=== PATIENT | female | born 1945 | race Caucasian/White ===

== ENCOUNTER 2018-04-10 11:37 | Day surgery (SDC) | payer MEDICARE, OTHER ==
[~2018-04-10] VITALS: Ht 167.6 cm; Wt 73.6 kg
[2018-04-10] MEDS ORDERED: PLEASE ENTER HEIGHT AND WEIGHT MC SCH (12:00)
[2018-04-10] MEDS ORDERED: PLEASE ENTER ALLERGIES MC SCH (12:00)
[2018-04-10] MEDS ORDERED: SODIUM CHLORIDE 0.9% 1,000 ML IV ONE (12:00)
[2018-04-10 12:05] VITALS: BP 135/71
[2018-04-10] MEDS ORDERED: ZOLP-413 PO (12:20)
[2018-04-10] MEDS ORDERED: OMEP-110 PO (12:20)
[2018-04-10] MEDS ORDERED: LEVO75TA5 PO (12:20)
[2018-04-10] MEDS ORDERED: LEVO100T5 PO (12:20)
[2018-04-10] MEDS ORDERED: ASPI-496 PO (12:20)
[2018-04-10] MEDS ORDERED: OMEG1CAP25 PO (12:20)
[2018-04-10] MEDS ORDERED: ALEN70TA3 PO (12:20)
[2018-04-10] MEDS ORDERED: CALC-649 PO (12:20)
[2018-04-10] MEDS ORDERED: LISI5TAB7 PO (12:20)
[2018-04-10] MEDS ORDERED: ASTR1POW PO (12:26)
[2018-04-10] MEDS ORDERED: OXYB5TAB7 PO (12:26)
[2018-04-10] MEDS ORDERED: BIOT5CAP3 PO (12:26)
[2018-04-10] MEDS ORDERED: VITA100C8 PO (12:31)
[2018-04-10] MEDS ORDERED: PROPOFOL 10 MG/ML, 20ML ONE (13:10)
== END 2018-04-10 14:52 | disposition home or self-care (01) ==
LOC: CACL 11:37
PROVIDERS: ATTEND Internal Medicine Cardiovascular Disease
DX: I35.1 Nonrheumatic aortic (valve) insufficiency (principal); I48.91 Unspecified atrial fibrillation; I10 Essential (primary) hypertension; E03.9 Hypothyroidism, unspecified; Z79.82 Long term (current) use of aspirin; Z79.899 Other long term (current) drug therapy; Z88.8 Allergy status to other drugs, medicaments and biological substances; Z95.0 Presence of cardiac pacemaker; Z98.890 Other specified postprocedural states
CPT/HCPCS: 93312; 93321; 93325; J2704

== ENCOUNTER → 2018-06-29 | Outpatient (CLI) | payer MEDICARE, OTHER ==
[~2018-06-29] MED LIST: ALEN70TA3 PO; ASPI-496 PO; ASTR1POW PO; BIOT5CAP3 PO; CALC-649 PO; LEVO100T5 PO; LEVO75TA5 PO; LISI5TAB7 PO; OMEG1CAP25 PO; OMEP-110 PO; OXYB5TAB7 PO; VITA100C8 PO; ZOLP-413 PO
== END | disposition home or self-care (01) ==
LOC: CVU 10:21
PROVIDERS: ATTEND Internal Medicine Cardiovascular Disease
DX: I65.23 Occlusion and stenosis of bilateral carotid arteries (principal); I10 Essential (primary) hypertension
CPT/HCPCS: 93880

== ENCOUNTER 2020-03-21 06:05 | Day surgery (SDC) | payer MEDICARE, OTHER ==
[~2020-03-21] VITALS: Ht 170.2 cm; Wt 76.0 kg
[~2020-03-21 06:05] MED LIST changes: +OXYB5TAB10 PO; -OXYB5TAB7 PO; +VITA100C10 PO; -VITA100C8 PO
[2020-03-21] MEDS ORDERED: SODIUM CHLORIDE 0.9% 1,000 ML IV SCH (06:30)
[2020-03-21] MEDS ORDERED: LISI-170 PO (06:36)
[2020-03-21 06:48] LABS: BASOPHILS % (AUTO) 1 % (0-1); EOSINOPHILS % (AUTO) 3 % (1-7); LYMPHOCYTES % (AUTO) 33 % (22-44); MEAN CORPUSCULAR HEMOGLOBIN 32.1 pg (27.0-34.8); MEAN CORPUSCULAR HGB CONC 33.8 g/dL (32.4-35.8); MEAN PLATELET VOLUME 9.9 fL (7.4-10.4); MONOCYTES % (AUTO) 11 % (2-9); NEUTROPHILS % (AUTO) 53 % (42-75); PLATELET COUNT 168 x10^3/uL (130-400); RED BLOOD COUNT 4.55 x10^6/uL (3.82-5.3); RED CELL DISTRIBUTION WIDTH 13.3 % (9.6-15.2)
[2020-03-21 06:53] LABS: MD NO
[2020-03-21 06:57] LABS: ANION GAP 9 mmol/L (5-15); CALCIUM 9.2 mg/dL (8.5-10.1); CHLORIDE 111 mmol/L (98-107); CREATININE 1.07 mg/dL (0.55-1.02)
[2020-03-21 07:02] VITALS: BP 126/87
[2020-03-21] MEDS ORDERED: CEFAZOLIN PMX 1GM/50ML 50 ML ONE (07:40)
[2020-03-21] MEDS ORDERED: MIDAZOLAM 1 MG/ML, 2ML ONE ×3 (07:40→09:28)
[2020-03-21] MEDS ORDERED: LIDOCAINE 1%, 20ML ONE ×2 (07:40→09:23)
[2020-03-21] MEDS ORDERED: FENTANYL PF 100 MCG/2ML ONE ×2 (07:40→09:28)
[2020-03-21] MEDS ORDERED: CEFAZOLIN 1,000 MG ONE (07:40)
[2020-03-21] MEDS ORDERED: HOLD MEDICATION MC PRN (10:00)
[2020-03-21] MEDS ORDERED: LEVOTHYROXINE 75 MCG TABLET PO SCH (10:00)
[2020-03-21] MEDS ORDERED: LEVOTHYROXINE 100 MCG TABLET PO SCH (10:00)
[2020-03-21] MEDS ORDERED: SODIUM CHLORIDE FLUSH 10ML SYR IVF SCH (21:00)
[2020-03-21] MEDS ORDERED: ZOLPIDEM 5MG TABLET PO SCH (21:00)
[2020-03-21] MEDS ORDERED: OXYBUTYNIN CHLORIDE 5 MG TABLET PO SCH (21:00)
[2020-03-22] MEDS ORDERED: DHA PO SCH (09:00)
[2020-03-22] MEDS ORDERED: FISH OIL PO SCH (09:00)
[2020-03-22] MEDS ORDERED: VITAMIN E PO SCH (09:00)
[2020-03-22] MEDS ORDERED: OMEPRAZOLE 20 MG CAPSULE.DR PO SCH (09:00)
[2020-03-22] MEDS ORDERED: EPA PO SCH (09:00)
[2020-03-22] MEDS ORDERED: TEMPLATE NON-FORMULARY MED. (Biotin** 5 MG) PO SCH (09:00)
[2020-03-22] MEDS ORDERED: LISINOPRIL 20 MG TABLET PO SCH (09:00)
[2020-03-22] MEDS ORDERED: OMEGA PO SCH (09:00)
== END 2020-03-21 12:31 | disposition home or self-care (01) ==
LOC: CACL 06:05
PROVIDERS: ATTEND Internal Medicine Cardiovascular Disease
DX: Z45.010 Encounter for checking and testing of cardiac pacemaker pulse generator [battery] (principal); I44.2 Atrioventricular block, complete; I10 Essential (primary) hypertension; Z79.890 Hormone replacement therapy; Z79.899 Other long term (current) drug therapy; Z91.048 Other nonmedicinal substance allergy status
CPT/HCPCS: 33228; 36415; 71046; 80048; 85025; 99156; 99157; C1785; J0690; J2250; J3010